=== PATIENT | female | born 1975 | race Caucasian/White ===

== ENCOUNTER 2018-04-23 22:07 | Emergency (ER) | payer BC ==
[~2018-04-23] VITALS: Ht 175.3 cm; Wt 68.2 kg
[~2018-04-23 22:07] MED LIST: IRON; LOPRESSOR 225 MG/TAB PO; PRENATAL VITAMI1 TA5 PO
[2018-04-23 22:12] VITALS: BP 126/66; PULSE 57; TEMP 98.1
== END 2018-04-23 23:55 | disposition home or self-care (01) ==
LOC: COL.ER 22:07
DX: S61.211A Laceration without foreign body of left index finger without damage to nail, initial encounter (principal); F17.210 Nicotine dependence, cigarettes, uncomplicated; W26.8XXA Contact with other sharp object(s), not elsewhere classified, initial encounter; Y92.828 Other wilderness area as the place of occurrence of the external cause

== ENCOUNTER → 2021-03-28 | Outpatient (CLI) | payer SELFPAY ==
[2006-05-07 17:00] VITALS: TEMP 97.3
== END ==
LOC: MC.RAD 10:45
DX: Z12.31 Encounter for screening mammogram for malignant neoplasm of breast (principal)